=== PATIENT | male | born 1985 | race Caucasian/White ===

== ENCOUNTER 2021-05-28 13:45 | Outpatient (REF) | payer MEDICARE, MEDICAID, SELFPAY ==
[2021-05-28 14:09] LABS: MANUAL DIFF FLAG NO
[2021-05-28 14:30] LABS: Basophils Percent Auto 0.6 % (0-2); Eosinophils Absolute Auto 0.2 X10*3/uL (0.0-0.4); Hematocrit 44.9 % (42-52); Hemoglobin 15.8 g/dl (14.0-18.0); Imm Gran Abs Auto 0.03 X10*3/uL (0.00-0.03); Imm Gran Pct Auto 0.5 % (0.0-0.4); Lymphocytes Absolute Auto 2.1 X10*3/uL (1.2-4.9); Lymphocytes Percent Auto 32.8 % (20-40); Mean Corpuscular HGB Conc 35.2 g/dl (31.0-36.0); Mean Corpuscular Hemoglobin 30.5 pg (27.0-33.0); Mean Corpuscular Volume 86.7 fL (80-98); Mean Platelet Volume 9.3 fL (9.4-12.4); Monocytes Absolute Auto 0.6 X10*3/uL (0.1-1.2); Monocytes Percent Auto 9.9 % (2-11); Neutrophils Absolute Auto 3.4 X10*3/uL (2.0-8.3); Neutrophils Percent Auto 53.2 % (45-73); Platelet Count 225 X10*3/uL (160-400); Red Blood Count 5.18 X10*6/uL (4.60-5.80); White Blood Count 6.3 X10*3/uL (4.8-10.8)
[2021-05-28 14:47] LABS: Estimated Average Glucose 103 mg/dL; Hemoglobin A1c % 5.2 %
[2021-05-28 15:03] LABS: Alanine Aminotransferase 60 U/L (0-40); Albumin Level 4.8 g/dL (3.5-5.0); Alkaline Phosphatase 31 U/L (39-117); Anion Gap 11 (12-20); Aspartate Amino Transferase 34 U/L (5-37); Bilirubin Total 0.6 mg/dL (0.0-1.0); Blood Urea Nitrogen 16 mg/dL (9-16); Calcium 9.6 mg/dL (8.4-10.2); Carbon Dioxide 27 mmol/L (22-29); Chloride 106 mmol/L (96-108); Cholesterol 193 mg/dL; Estimated Glomerular Filt Rate 53; Glucose Random 104 mg/dL (60-115); HDL Cholesterol 26 mg/dL; LDL Cholesterol Calculated 120 mg/dl; Potassium 3.8 mmol/L (3.3-5.1); Sodium 140 mmol/L (135-145); Total Protein 7.3 g/dL (6.5-8.0); Triglycerides 236 mg/dL
[2021-05-28 15:24] LABS: Free T4 (Free Thyroxine) 1.23 ng/dL (0.71-1.85); Thyroid Stimulating Hormone 0.19 uIU/mL (0.32-4.0)
[2021-05-28 15:29] LABS: Appearance Urine HAZY; Color Urine YELLOW; Glucose Urine UA NEG (NEG); Leukocyte Esterase Urine 1+ (NEG); Nitrite Urine NEG (NEG); PH 7.5 (5.0-8.0); Specific Gravity - Urine 1.015 (1.005-1.025); Urine Blood NEG (NEG); Urine Ketones NEG (NEG); Urine Protein NEG (NEG-TRACE)
[2021-05-28 15:36] LABS: Folate 7.6 ng/mL (> or = 4.0); Vitamin B12 333 pg/mL (200-900)
[2021-05-28 15:38] LABS: Mucus Urine 1+ /LPF; Renal Epithelial Cells Urine TRACE /LPF; Squamous Epithelial Cell Urine 3+ /LPF
[2021-05-28 15:39] LABS: Bacteria Urine 1+ /LPF; RBC Urine 0 /HPF (0); WBC Urine 0-2 /HPF (0-4)
[2021-05-28 15:50] LABS: Creatinine Urine 39.66 mg/dL; Microalbumin Urine < 5.0 mg/L
== END 2021-05-28 13:46 | disposition home or self-care (01) ==
LOC: HO.LAB 13:45
PROVIDERS: Absent Provider Internal Medicine Hypertension Specialist; PCP Internal Medicine; Visit Provider Internal Medicine
DX: K21.9 Gastro-esophageal reflux disease without esophagitis (principal); R73.02 Impaired glucose tolerance (oral); E03.9 Hypothyroidism, unspecified; E78.00 Pure hypercholesterolemia, unspecified; N18.31 Chronic kidney disease, stage 3a
CPT/HCPCS: 36415; 80053; 80061; 81001; 81003; 82043; 82607; 82746; 83036; 84439; 84443; 85025

== ENCOUNTER 2021-09-18 11:07 | Outpatient (REF) | payer MEDICARE, MEDICAID, SELFPAY ==
[2021-09-18 13:11] LABS: Alanine Aminotransferase 66 U/L (0-40); Albumin Level 4.7 g/dL (3.5-5.0); Alkaline Phosphatase 31 U/L (39-117); Anion Gap 11 (12-20); Aspartate Amino Transferase 36 U/L (5-37); Bilirubin Total 0.5 mg/dL (0.0-1.0); Blood Urea Nitrogen 16 mg/dL (9-16); Calcium 10.1 mg/dL (8.4-10.2); Carbon Dioxide 27 mmol/L (22-29); Chloride 105 mmol/L (96-108); Cholesterol 186 mg/dL; Estimated Glomerular Filt Rate 48; Glucose Random 101 mg/dL (60-115); HDL Cholesterol 13 mg/dL; LDL Cholesterol Calculated 115 mg/dl; Sodium 139 mmol/L (135-145); Total Protein 7.3 g/dL (6.5-8.0); Triglycerides 294 mg/dL
[2021-09-18 13:33] LABS: Thyroid Stimulating Hormone 13.64 uIU/mL (0.32-4.0)
== END 2021-09-18 11:08 | disposition home or self-care (01) ==
LOC: HO.LAB 11:07
PROVIDERS: PCP Internal Medicine; Visit Provider Internal Medicine
DX: E78.00 Pure hypercholesterolemia, unspecified (principal); E03.9 Hypothyroidism, unspecified
CPT/HCPCS: 36415; 80053; 80061; 84439; 84443

== ENCOUNTER 2021-12-16 10:20 | Outpatient (REF) | payer MEDICARE, MEDICAID, SELFPAY ==
[2021-12-16 12:46] LABS: Free T4 (Free Thyroxine) 1.02 ng/dL (0.71-1.85); Thyroid Stimulating Hormone 3.96 uIU/mL (0.32-4.0)
== END 2021-12-16 10:21 | disposition home or self-care (01) ==
LOC: HO.LAB 10:20
PROVIDERS: PCP Internal Medicine; Visit Provider Internal Medicine
DX: E03.9 Hypothyroidism, unspecified (principal)
CPT/HCPCS: 36415; 84439; 84443

== ENCOUNTER 2022-03-12 15:51 | Outpatient (REF) | payer MEDICARE, MEDICAID, SELFPAY ==
[2022-03-12 17:32] LABS: Anion Gap 12 (12-20); Blood Urea Nitrogen 16 mg/dL (9-16); Calcium 9.4 mg/dL (8.4-10.2); Carbon Dioxide 26 mmol/L (22-29); Chloride 98 mmol/L (96-108); Estimated Glomerular Filt Rate 54; Glucose Random 122 mg/dL (60-115); Potassium 3.6 mmol/L (3.3-5.1); Sodium 132 mmol/L (135-145)
[2022-03-12 18:50] LABS: Total Protein Urine Random < 7 mg/dL (<12)
== END 2022-03-12 15:52 | disposition home or self-care (01) ==
LOC: HO.LAB 15:51
PROVIDERS: PCP Internal Medicine; Visit Provider Internal Medicine Hypertension Specialist
DX: N18.31 Chronic kidney disease, stage 3a (principal)
CPT/HCPCS: 36415; 80048; 84156

== ENCOUNTER 2022-06-26 08:13 | Outpatient (REF) | payer MEDICARE, MEDICAID, SELFPAY ==
[2022-06-26 08:27] LABS: MANUAL DIFF FLAG NO
[2022-06-26 09:00] LABS: Basophils Percent Auto 0.6 % (0-2); Eosinophils Absolute Auto 0.2 X10*3/uL (0.0-0.4); Eosinophils Percent Auto 2.4 % (0-4); Hematocrit 42.3 % (42.0-52.0); Hemoglobin 14.4 g/dl (14.0-18.0); Imm Gran Abs Auto 0.03 X10*3/uL (0.00-0.03); Imm Gran Pct Auto 0.5 % (0.0-0.4); Lymphocytes Absolute Auto 2.4 X10*3/uL (1.2-4.9); Mean Corpuscular Volume 88.1 fL (80.0-98.0); Mean Platelet Volume 9.7 fL (9.4-12.4); Monocytes Absolute Auto 0.6 X10*3/uL (0.1-1.2); Monocytes Percent Auto 8.8 % (2-11); Neutrophils Absolute Auto 3.4 x10*3/uL (2.0-8.3); Neutrophils Percent Auto 51.7 % (45-73); Platelet Count 247 X10*3/uL (160-400); Red Cell Distribution Width 11.9 % (11.0-16.0); White Blood Count 6.6 X10*3/uL (4.8-10.8)
[2022-06-26 09:27] LABS: Estimated Average Glucose 105 mg/dL; Hemoglobin A1c % 5.3 %
[2022-06-26 09:46] LABS: Alanine Aminotransferase 48 U/L (0-40); Albumin Level 4.8 g/dL (3.5-5.0); Alkaline Phosphatase 32 U/L (39-117); Anion Gap 15 (12-20); Aspartate Amino Transferase 35 U/L (5-37); Bilirubin Total 0.4 mg/dL (0.0-1.0); Blood Urea Nitrogen 14 mg/dL (9-16); Carbon Dioxide 25 mmol/L (22-29); Chloride 106 mmol/L (96-108); Cholesterol 152 mg/dL; Estimated Glomerular Filt Rate 55; Glucose Random 104 mg/dL (60-115); HDL Cholesterol 30 mg/dL; LDL Cholesterol Calculated 99 mg/dl; Potassium 4.1 mmol/L (3.3-5.1); Sodium 142 mmol/L (135-145); Total Protein 7.1 g/dL (6.5-8.0); Triglycerides 116 mg/dL
[2022-06-26 09:54] LABS: Free T4 (Free Thyroxine) 1.18 ng/dL (0.71-1.85); Thyroid Stimulating Hormone 0.17 uIU/mL (0.32-4.0); Vitamin D 25-OH Total 18.5 ng/mL (>30)
[2022-06-26 10:08] LABS: Folate 7.3 ng/mL (> or = 4.0); Vitamin B12 325 pg/mL (200-900)
== END 2022-06-26 08:14 | disposition home or self-care (01) ==
LOC: HO.LAB 08:13
PROVIDERS: PCP Internal Medicine; Visit Provider Internal Medicine
DX: N18.31 Chronic kidney disease, stage 3a (principal); R73.02 Impaired glucose tolerance (oral); E78.00 Pure hypercholesterolemia, unspecified; E03.9 Hypothyroidism, unspecified
CPT/HCPCS: 36415; 80053; 80061; 82306; 82607; 82746; 83036; 84439; 84443; 85025

== ENCOUNTER 2022-09-04 09:32 | Outpatient (REF) | payer MEDICARE, MEDICAID, SELFPAY ==
[2022-09-04 11:40] LABS: Free T4 (Free Thyroxine) 0.87 ng/dL (0.71-1.85); Thyroid Stimulating Hormone 2.73 uIU/mL (0.32-4.0)
== END 2022-09-04 09:33 | disposition home or self-care (01) ==
LOC: HO.LAB 09:32
PROVIDERS: PCP Internal Medicine; Visit Provider Internal Medicine
DX: E03.9 Hypothyroidism, unspecified (principal)
CPT/HCPCS: 36415; 84439; 84443

== ENCOUNTER 2023-03-31 13:01 | Outpatient (AMB) | payer MEDICARE, MEDICAID, SELFPAY ==
--- NOTE | 2023-03-31 13:06 | AM.OFFWIN_ITS ---
Intake Vital Signs 03/31/23 13:09 Height 5 ft 10 in Weight 83.178 kg BMI 26.3 BP 122/70 Blood Pressure Location Lt brachial Position Sitting Pulse 98 Pulse Source Pulse Oximeter Temp 97.2 F Temp Source Temporal Artery Scan Pulse Oximetry (%) 100 Oxygen Delivery Method Room Air Intake Visit Reasons: EP Sciatica/RT Leg pain Intake Note: Pt is here c/o right leg pain for a few days. Patient Tobacco Use Status: Former Tobacco user Allergies Penicillins [PENICILLINS] Allergy (Mild, Verified 03/31/23 13:07) RASH cat dander [CATS] Allergy (Unknown, Verified 03/31/23 13:07) STUFFY NOSE, ITCHY EYES penicillin V Allergy (Unknown, Verified 03/31/23 13:07) rash risperidone [Risperdal] Allergy (Unknown, Verified 03/31/23 13:07) Unknown aripiprazole [From ABILIFY] Adverse Reaction (Severe, Verified 03/31/23 13:07) many eps symptons Do you need a note to return to daycare/school/sports/work: No HPI HPI Comments History of Present Illness Details 1310 37 yo Male history hypertension, GERD, hypothyroidism, schizoaffective disorder presenting with complaints of right lower back pain with radiation into right buttocks and right lower extremity, patient tells me that he has a history of sciatica normally on the left side however today it is on the right side. Denie s blunt trauma. Denies urinary/bowel incontinence/retention, saddle paresthesias, weakness, fevers, chills, nausea, vomiting, headache, vision changes, dizziness and weakness Physical exam with right lumbar paraspinous tenderness on palpation. No midline tenderness. No saddle paresthesias. Patient ambulating with steady gait normal coordination Suspected that this is sciatica versus lumbar radiculopathy. Unlikely cauda equina, cord compression, epidural abscess. No signs of neurovascular comp Plan tylenol, prednisone and Lidoderm. Educated patient on diagnosis and treatment plan, answered all question, patient verbalizes understanding. At this time patient will be discharged home, advised to return with new or worsening symptoms. Educated on worrisome signs and symptoms and when to return. At this time I feel comfortable discharge home. [facility] Medical History Alcohol abuse Erectile dysfunction Fatty liver GERD (gastroesophageal reflux disease) Hypercholesterolemia Hypothyroid Impaired glucose tolerance Overweight (BMI 25.0-29.9) Schizoaffective disorder, bipolar type Surgical History History of endoscopy Family History Father Medical history unknown Mother No problems noted. Sister Thyroid condition Paternal Grandfather Myocardial infarction Brother No problems noted. Social History Housing: House Alcohol intake: current Patient Tobacco Use Status: Former Tobacco user Tobacco use type: Cigarette e-Cigarette/Vaping Use: Never Used Second Hand Smoke Exposure: No service: No Current occupational status: unemployed Cognitive needs: No Hearing needs: No Vision needs: No Review of Systems Const Details: Constitutional : No Weight loss, No Fever, No Chills, ENT/Mouth : No Hearing loss, No Ear Pain, No Nasal Congestion, No Sinus Pain, No Hoarseness, No sore throat, No Rhinorrhea, No Swallowing Difficulty Cardiovascular : No Chest Pain, No SOB Respiratory : No Cough, No Dyspnea Gastrointestinal : No Nausea, No Vomiting, No Diarrhea, No abdominal Pain, No Hematochezia, No Melena Genitourinary : No Dysuria, No Urinary Frequency, No Hematuria, No Urinary Incontinence, Musculoskeletal : positive back pain Skin : No Skin Lesions, No rash Neuro : No Weakness, No Numbness, No Paresthesias, no loss of bowel or bladder incontinence, no saddle anesthesia All systems reviewed & are unremarkable except as noted in HPI and below Physical Exam Vital Signs: Last Vital Signs Temp 97.2 F 03/31/23 13:09 Pulse 98 03/31/23 13:09 BP 122/70 03/31/23 13:09 Pulse Ox 100 03/31/23 13:09 Oxygen Delivery Method Room Air 03/31/23 13:09 BMI result Body Mass Index 26.3 Vital signs stable Appearance: Alert.? Oriented X3.? No acute distress.? Head: Normocephalic, atraumatic, no step-offs or deformities Eyes: Pupils equal, round and reactive to light.? CVS: Normal heart rate and rhythm.? Pulses normal.? Respiratory: No respiratory distress.? Breath sounds normal.? Abdomen: Soft and nontender.? Skin: Skin warm and dry.? Normal skin color.? Normal skin turgor.? Extremities: No lower extremity edema.? No calf ttp. 5/5 strength to bilateral upper and lower extremities Back: No midline tenderness, no C-spine tenderness, full range of motion, no CVA tenderness bilaterally + right lumbar paraspinous tenderness on palpation. No midline tenderness. No saddle paresthesias. Patient ambulating with steady gait normal coordination Neuro: Oriented X 3.? No motor deficit.? No sensory deficit. CN 2-12 intact Assessment & Plan Assessment & Plan (1) Lumbar radiculopathy: Code(s): M54.16 - Radiculopathy, lumbar region Plan Take your medications as prescribed. If you were prescribed antibiotics today, it is important that you take your medication to their entirety, do not skip any doses, do not finish them early. Follow-up with your primary care provider this week. Return to the emergency department with new or worsening symptoms. Such as fevers, chills, chest pain, shortness of breath, nausea, vomiting, dizziness, headache, vision changes, lethargy In case of emergency call 911 Toradol has been sent to your pharmacy, you tolerated this well in the department. Please take this as prescribed do not take this with ibuprofen, or other NSAIDs, do not mix this with alcohol. Side effects of this medication including increased risk for bleeding and possible kidney injury. Medications: New prednisone 40 mg (2 x 20 mg) PO DAILY 10 tabs 0RF 5 days lidocaine 4% (AsperFlex (lidocaine)) 1 patch topical DAILY PRN 15 ea 0RF pain acetaminophen (Tylenol) 650 mg (2 x 325 mg) PO QID PRN 20 caps 0RF pain Coding Level of Care Code Est Pt Level 3 (86084) Diagnoses Lumbar radiculopathy M54.16
[2023-03-31 13:09] VITALS: BP 122/70; PULSE 98; TEMP 36.2; O2SAT 100; BMI 26.3
== END 2023-03-31 13:51 | disposition home or self-care (01) ==
PROVIDERS: PCP Internal Medicine; Visit Provider Physician Assistant
DX: M54.16 Radiculopathy, lumbar region (principal)
CPT/HCPCS: 99213

== ENCOUNTER 2023-04-13 12:43 | Outpatient (AMB) | payer MEDICARE, MEDICAID, SELFPAY ==
[2023-04-13 12:44] VITALS: BP 120/64; PULSE 107; TEMP 36.4; O2SAT 98; BMI 35.0
--- NOTE | 2023-04-13 12:44 | MHC.OFFWIV ---
Intake Vital Signs 04/13/23 12:44 Height 5 ft Weight 179 lb 4 oz BMI 35.0 BP 120/64 Blood Pressure Location Rt brachial Position Sitting Pulse 107 H Pulse Source Pulse Oximeter Temp 97.5 F Temp Source Temporal Artery Scan Pulse Oximetry (%) 98 Oxygen Delivery Method Room Air Intake Visit Reasons: EP RT Leg Intake Note: Pt is here c/o right leg pain for the past 3 weeks. Patient Tobacco Use Status: Former Tobacco user Allergies Penicillins [PENICILLINS] Allergy (Mild, Verified 04/14/23 06:01) RASH cat dander [CATS] Allergy (Unknown, Verified 04/14/23 06:01) STUFFY NOSE, ITCHY EYES penicillin V Allergy (Unknown, Verified 04/14/23 06:01) rash risperidone [Risperdal] Allergy (Unknown, Verified 04/14/23 06:01) Unknown aripiprazole [From ABILIFY] Adverse Reaction (Severe, Verified 04/14/23 06:01) many eps symptons Medication List - Last Reconciled 04/14/23 by Sae Hoffman MD acetaminophen (Tylenol) 650 mg (2 x 325 mg) PO QID PRN benztropine 1 mg PO BID chlorpromazine 200 mg PO .QD cyclobenzaprine 10 mg PO TID PRN 7 days fenofibrate 160 mg PO DAILY haloperidol 10 mg PO TID levothyroxine take once a day 6 days a week orally every morning; 90 days lidocaine 4% (AsperFlex (lidocaine)) 1 patch topical DAILY PRN pantoprazole 40 mg PO DAILY polymyxin B sulf-trimethoprim 10,000 unit- 1 mg/mL 1 drp ophthalmic (eye) QID 7 days prednisone 40 mg (2 x 20 mg) PO DAILY 5 days prednisone 40 mg (2 x 20 mg) PO DAILY 5 days sildenafil 100 mg PO DAILY PRN Do you need a note to return to daycare/school/sports/work: No HPI EP RT Leg HPI Details 37-year-old male presents to the office for a sick visit. Patient is complaining of pain in the right leg starting from the hip all the way down to the foot. Does not recall any fall or injury. Able to walk with no difficulty. Pain is throbbing in nature in the hip area. [facility] Medical History Alcohol abuse Erectile dysfunction Fatty liver GERD (gastroesophageal reflux disease) Hypercholesterolemia Hypothyroid Impaired glucose tolerance Overweight (BMI 25.0-29.9) Schizoaffective disorder, bipolar type Surgical History History of endoscopy Family History Father Medical history unknown Mother No problems noted. Sister Thyroid condition Paternal Grandfather Myocardial infarction Brother No problems noted. Social History Housing: House Alcohol intake: current Patient Tobacco Use Status: Former Tobacco user Tobacco use type: Cigarette e-Cigarette/Vaping Use: Never Used Second Hand Smoke Exposure: No service: No Current occupational status: unemployed Cognitive needs: No Hearing needs: No Vision needs: No Physical Exam Vital Signs: Last Vital Signs Temp 97.5 F 04/13/23 12:44 Pulse 107 H 04/13/23 12:44 BP 120/64 04/13/23 12:44 Pulse Ox 98 04/13/23 12:44 Oxygen Delivery Method Room Air 04/13/23 12:44 BMI result Body Mass Index 35.0 Const General: cooperative and healthy appearing Nutritional Appearance: well nourished Orientation/consciousness: patient oriented x3 Limitations: no limitations HEENT Head: Yes normal to inspection Eyes General: appearance normal, both eyes and all related structures Neck Neck: Yes normal visual inspection Chest Chest palpation & inspection: normal palpation of entire chest wall Resp Effort & Inspection: normal respiratory effort Neuro General: patient oriented x3 Extrem Other: Right hip: Discomfort along the greater trochanter. Assessment & Plan Assessment & Plan (1) Pain of right hip: Code(s): M25.551 - Pain in right hip Plan: X-ray images were personally reviewed by me. No abnormality seen. Anti-inflammatory suggested. If symptoms do not improve to follow-up here. Orders: Orders XR hip RT w PEL1V 04/13/23 M25.551 - Pain in right hip Coding Level of Care Code Est Pt Level 4 (57248) Diagnoses Pain of right hip M25.551
== END 2023-04-13 13:42 | disposition home or self-care (01) ==
PROVIDERS: PCP Internal Medicine; Visit Provider Internal Medicine
DX: M25.551 Pain in right hip (principal)
CPT/HCPCS: 99214

== ENCOUNTER 2023-04-13 13:11 | Outpatient (REF) | payer MEDICARE, MEDICAID, SELFPAY ==
--- NOTE | ~2023-04-13 | XR_ITS ---
EXAMINATION: XR HIP, RIGHT CLINICAL INFORMATION: Pain. COMPARISON: None available. TECHNIQUE: Two views of the right hip. FINDINGS: No fracture. Alignment is anatomic. Hip joint space is maintained. Soft tissues are unremarkable. XR/XR hip RT w PEL1V IMPRESSION: No significant abnormality identified.
== END 2023-04-13 13:12 | disposition home or self-care (01) ==
LOC: HO.HMGCX 13:11
PROVIDERS: Visit Provider Internal Medicine
DX: M25.551 Pain in right hip (principal)
CPT/HCPCS: 73502

== ENCOUNTER 2023-05-20 10:44 | Outpatient (AMB) | payer MEDICARE, MEDICAID, SELFPAY ==
--- NOTE | 2023-05-20 10:55 | A.OFFPC_ITS ---
Vital Signs 05/20/23 10:56 Height 5 ft 10 in Weight 177 lb 6 oz BMI 25.4 BP 118/86 Blood Pressure Location Lt brachial Position Sitting Respiration 17 Pulse 115 H Pulse Source Pulse Oximeter Pulse Oximetry (%) 98 Oxygen Delivery Method Room Air Intake Visit Reasons: pt wants pt Intake Note: Pt is here for pain of right hip. Pt requesting PT order for [place] office. Digital Assistant Required: No Accompanied by: Self / Same As Patient Allergies Penicillins [PENICILLINS] Allergy (Mild, Verified 05/20/23 11:33) RASH cat dander [CATS] Allergy (Unknown, Verified 05/20/23 11:33) STUFFY NOSE, ITCHY EYES penicillin V Allergy (Unknown, Verified 05/20/23 11:33) rash risperidone [Risperdal] Allergy (Unknown, Verified 05/20/23 11:33) Unknown aripiprazole [From ABILIFY] Adverse Reaction (Severe, Verified 05/20/23 11:33) [facility] Medication List - Last Reconciled 05/20/23 by Jona Morelos PA-C acetaminophen (Tylenol) 650 mg (2 x 325 mg) PO QID PRN benztropine 1 mg PO BID chlorpromazine 200 mg PO .QD fenofibrate 160 mg PO DAILY haloperidol 10 mg PO TID levothyroxine take once a day 6 days a week orally every morning; 90 days lidocaine 4% (AsperFlex (lidocaine)) 1 patch topical DAILY PRN pantoprazole 40 mg PO DAILY sildenafil 100 mg PO DAILY PRN Tobacco use date assessed: 09/17/22 Dental Screening Dental Screen Date: 05/20/23 Did you have a dental visit in the last 12 months?: Yes Did you have a dental problem in the last 6 months where you did not have access to dental care?: No Was dental information given to patient?: Patient has dentist HPI pt wants pt HPI Details Patient is a 37-year-old male here today for a problem visit. This is the 1st time I am meeting this 37-year-old male with a past medical history significant for CKD, schizophrenia, hypothyroid and hyperlipidemia. He reports over the last few weeks having right buttocks pain that radiates down his right leg into his calf. He denies any recent falls or trauma to his lower back or leg. He has had similar symptoms in the past that have resolved spontaneously. He has tried Tylenol for his pain has not been effective. He is interested in doing physical therapy to help him with his presumed sciatica. [facility] Medical History Alcohol abuse Erectile dysfunction Fatty liver GERD (gastroesophageal reflux disease) Hypercholesterolemia Hypothyroid Impaired glucose tolerance Overweight (BMI 25.0-29.9) Schizoaffective disorder, bipolar type Surgical History History of endoscopy Family History Father Medical history unknown Mother No problems noted. Sister Thyroid condition Paternal Grandfather Myocardial infarction Brother No problems noted. Social History Housing: House Alcohol intake: current Patient Tobacco Use Status: Former Tobacco user Tobacco use type: Cigarette e-Cigarette/Vaping Use: Never Used Second Hand Smoke Exposure: No service: No Current occupational status: unemployed Cognitive needs: No Hearing needs: No Vision needs: No Questionnaire Thrive Questionnaire Date Thrive assessed: 09/17/22 ARMANDO-7 AMB Questionnaire ARMANDO-7 Date ARMANDO - 7 assessed: 09/17/22 Source: Developed by Drs. Harley Louis, Ewa Chambers, Lewis Be and colleagues, with an educational karen from [employer]. Review of Systems Const Denies headache(s) Eyes Denies loss of vision ENT Denies vertigo, Denies dizziness, Denies headache(s) and Denies sore throat Card Denies chest pain, Denies leg edema and Denies lightheadedness Resp Denies cough, Denies hemoptysis and Denies wheezing GI Denies abdominal pain, Denies melena, Denies constipation, Denies diarrhea and Denies vomiting Denies dysuria, Denies urinary frequency and Denies urinary urgency Musc Denies arthralgias, Denies joint swelling, Denies numbness and Denies tingling Neuro Denies Abnormal speech present, Denies behavioral changes, Denies vertigo, Denies dizziness, Denies headache(s), Denies loss of vision, Denies memory loss, Denies numbness and Denies tingling Psych Denies anxiety, Denies behavioral changes, Denies depression, Denies memory loss and Denies panic attacks David/Lymph Denies easy bleeding and Denies easy bruising Aller/Immun Denies wheezing Physical exam (Primary Care) Vital Signs: Last Vital Signs Pulse 115 H 05/20/23 10:56 Resp 17 05/20/23 10:56 BP 118/86 05/20/23 10:56 Pulse Ox 98 05/20/23 10:56 Oxygen Delivery Method Room Air 05/20/23 10:56 BMI result Body Mass Index 25.4 Tobacco/Smoking Status: Tobacco use Status Tobacco use date assessed 09/17/22 05/20/23 10:59 Patient Tobacco Use Status Former Tobacco user 05/20/23 10:59 Tobacco use type Cigarette 05/20/23 10:59 e-Cigarette/Vaping Use Never Used 05/20/23 10:59 Thrive Assessment: Date of Thrive Assessment Date Thrive assessed 09/17/22 05/20/23 10:59 Const General: healthy appearing, no acute distress, alert and awake Nutritional Appearance: well nourished Orientation/consciousness: oriented to person, oriented to place and oriented to time HENMT Ears: TM's normal bilaterally General nose exam: Normal nasal mucous membranes and turbinates present Eyes Conjunctivae: conjunctivae normal Sclerae: sclerae normal Pupils: Equal, round and reactive pupils present Neck Neck: Yes no lymphadenopathy and Yes no JVD Thyroid: Thyroid normal Carotids: no bruits Resp Effort & Inspection: normal respiratory effort and not tachypneic Auscultation: no crackles, no rales, no rhonchi and no wheezes Cardio Rate: regular rate Rhythm: regular rhythm Heart sounds: no murmurs and normal S1 and S2 GI Palpation (GI): Soft to palpation, nontender, no hepatomegaly and no splenomegaly Auscultation: normal bowel sounds Skin General skin exam: no rashes or lesions noted and dry skin Neuro General: oriented to person, oriented to place and oriented to time Cranial nerves: Yes Equal, round and reactive pupils present Speech: No Abnormal speech present Gait exam (Neuro): Normal gait present Motor exam (neuro): no tremor noted Extrem Right upper extremity: full ROM Left upper extremity: full ROM Right lower extremity: full ROM; no edema Left lower extremity: full ROM; no edema Psych Mental Status: mental status grossly normal Speech and movement: Normal speech and movement present Affect: normal affect Attitude: cooperative Thought process: Normal thought process present Assessment and Plan Assessment & Plan (1) Right sided sciatica: Code(s): M54.31 - Sciatica, right side Plan: Patient's signs symptoms most consistent with right-sided sciatica. Would likely benefit from formal physical therapy for his right-sided sciatica. Will supply patient with short-term script gabapentin the use at night to help reduce his neuropathic pain. (2) Hypertension: Code(s): I10 - Essential (primary) hypertension Qualifiers: Hypertension type: primary hypertension Qualified Code(s): I10 - Essential (primary) hypertension Plan: Needs more recent labs to evaluate kidney function Orders: Orders Comprehensive [place]. Panel Fast Today N18.32 - Chronic kidney disease, stage 3b PT Evaluation and Treatment Today M54.31 - Sciatica, right side Medications: New gabapentin 300 mg PO BEDTIME 14 days 14 caps 0RF M54.31 - Sciatica, right side Refilled sildenafil administer 30 minutes to 4 hours before activity 100 mg PO DAILY PRN 7 tabs 0RF sexual activity N52.9 - Male erectile dysfunction, unspecified Coding Level of Care Code Est Pt Level 4 (23949) Diagnoses Right sided sciatica M54.31 Primary hypertension I10 Hypertension type: primary hypertension
[2023-05-20 10:56] VITALS: BP 118/86; PULSE 115; RESP 17; O2SAT 98; BMI 25.4
== END 2023-05-20 11:45 | disposition home or self-care (01) ==
PROVIDERS: PCP Internal Medicine; Visit Provider Physician Assistant
DX: M54.31 Sciatica, right side (principal); I10 Essential (primary) hypertension
CPT/HCPCS: 99214

== ENCOUNTER 2023-07-06 13:00 | Outpatient (RCR) | payer MEDICARE, MEDICAID, SELFPAY ==
--- NOTE | 2023-05-28 14:37 | MHC.PT.EP ---
[facility] [place] Office [place] Office [place] Office [address]any Nunn [address] [phone] F: [phone] F: [phone] F: [phone] F: [phone] Physical Therapy Plan of Care Date of Evaluation: 05/28/23 Date of Surgery: Diagnosis: This is a 37 yo male presenting to skilled PT with a script for R sided sciatica. Assessment: This is a 37 yo male presenting to skilled PT with a script for R sided sciatica. Patient reporting ongoing pain over the last few months radiating from low back into the right buttocks and down his right leg into his calf. He denies any recent falls or trauma causing his symptoms. Originally his L leg was bothering him however he was in bed for some time due to this pain (unable to get out due to pain), this resolved but his RLE started to increase in pain. Pain today is located R buttock and runs into the gastroc. He denies foot symptoms or back pain but does have some numbness at the knee. Pain is described as tight and achy. He has tried Tylenol for his pain relief, has been to the walk-in twice where he was provided gabapentin and hip x-ray (negative). Pain increases with sitting, in the AM. Pain improves with movement. Assessment reveals pain that ranges from up to a 5/10 at the worst. Patient demos decreased lumbar and hamstring/gastroc ROM, strength of gluts, core and back, TTP at R PSIS and R piriformis and impaired posture with forward head, increased thoracic kyphosis and rounded shoulders. Patient appears to live a sedentary lifestyle now and this may be contributing to his stiffness but he has ambitions of starting at the gym. Based on functional limitations, impaired QOL and pain tolerance patient is a good candidate for skilled PT 2x/wk for 4wks. Frequency and Duration: The patient will be seen 2x/wk for 4wks Short Term Goals: Pt will demonstrate improved postural awareness and understanding of core engagement with supine and standing tasks without cues throughout session to improve overall back safety in 2 weeks. Pt will demonstrate centralization of sx in 2 weeks. Pt will continue to reinforce precautions, sitting, standing and ADL modifications with proper body mechanics in 2 wks. Fleet Director Goals: Pt will demonstrate improved outcome measure by 5 points in 4 weeks for improved functional mobility. Pt will demonstrate ability to bend and lift WNL min to no pain per surgeon restrictions for return to work activities in 4 wks. Pt will be I in HEP and compliant in 4wks Treatment Plan: Modalities to reduce pain, spasms and effusion. Manual therapy to restore motion and function. Therapeutic exercise to improve strength and flexibility. Neuromuscular re-education for posture and balance. Therapeutic activities to return to functional activities of daily living. Electronically signed by: Екатерина Chu, PT Please sign and return to therapist. Thank you for your referral.
--- NOTE | 2023-07-19 12:59 | MHC.PT.DC ---
[facility] [place] [facility] [place] Office [place] Office [address] [phone] F: [phone] F: [phone] F: [phone] F: [phone] Physical Therapy Discharge Report Diagnosis: This is a 37 yo male presenting to skilled PT with a script for R sided sciatica. Date of Surgery: Date of Evaluation: 05/28/23 Date of Discharge: 07/19/23 Treatments to Date: 9 Cancellations to Date: 0 No Shows to Date: 0 Discharge Status: Independent with HEP Patient Elected to Stop Discharge Summary: Patient with improved ROM, strength and pain. He is looking into a membership at [employer] to continue HEP on on his own. He called to DC and stated that he feels well enough to continue on his own. Electronically signed by: Екатерина Chu PT Please sign and return to therapist. Thank you for your referral.
== END 2023-07-19 12:59 | disposition home or self-care (01) ==
LOC: HO.PTCHIC 13:00
PROVIDERS: PCP Internal Medicine; Visit Provider Physician Assistant
DX: M54.31 Sciatica, right side (principal)
CPT/HCPCS: 97110; 97140; 97161; 97530

== ENCOUNTER 2023-09-21 13:21 | Outpatient (AMB) | payer MEDICARE, MEDICAID, SELFPAY ==
[2023-09-21 13:22] VITALS: BP 136/88; PULSE 93; O2SAT 99; BMI 26.3
--- NOTE | 2023-09-21 13:22 | A.OFFPC_ITS ---
Vital Signs 09/21/23 13:22 Height 5 ft 10 in Weight 183 lb BMI 26.3 BP 136/88 Blood Pressure Location Lt brachial Position Sitting Pulse 93 Pulse Source Pulse Oximeter Pulse Oximetry (%) 99 Oxygen Delivery Method Room Air Intake Visit Reasons: pe Intake Note: Patient is here today for a physical. Value Stream Coach Required: No Allergies Penicillins [PENICILLINS] Allergy (Mild, Verified 09/21/23 13:23) RASH cat dander [CATS] Allergy (Unknown, Verified 09/21/23 13:23) STUFFY NOSE, ITCHY EYES penicillin V Allergy (Unknown, Verified 09/21/23 13:23) rash risperidone [Risperdal] Allergy (Unknown, Verified 09/21/23 13:23) Unknown aripiprazole [From ABILIFY] Adverse Reaction (Severe, Verified 09/21/23 13:23) [facility] Medication List - Last Reconciled 09/21/23 by Carlota Pulido MD acetaminophen (Tylenol) 650 mg (2 x 325 mg) PO QID PRN benztropine 1 mg PO BID chlorpromazine 200 mg PO .QD fenofibrate 160 mg PO DAILY gabapentin 300 mg PO BEDTIME 14 days haloperidol 10 mg PO TID levothyroxine take once a day 6 days a week orally every morning; 90 days lidocaine 4% (AsperFlex (lidocaine)) 1 patch topical DAILY PRN [SciatiEase 2 caps PO BID] sildenafil 100 mg PO DAILY PRN Tobacco use date assessed: 09/21/23 Dental Screening Dental Screen Date: 09/21/23 Did you have a dental visit in the last 12 months?: No Did you have a dental problem in the last 6 months where you did not have access to dental care?: No Was dental information given to patient?: Patient has dentist HPI pe HPI Details 38-year-old overweight male with chronic kidney disease fatty liver impaired glucose tolerance GERD hypercholesterolemia hypothyroidism hypertension schizoaffective disorder coming in for physical exam last seen in August 2022. Review of the notes April 2023 seen by the nurse practitioner for requesting physical therapy complains of right leg pain and has ask for physical therapy. Patient did have some x-ray done in March 2023 showing no significant abnormality. [facility] Medical History Alcohol abuse Erectile dysfunction Fatty liver GERD (gastroesophageal reflux disease) Hypercholesterolemia Hypothyroid Impaired glucose tolerance Overweight (BMI 25.0-29.9) Schizoaffective disorder, bipolar type Surgical History History of endoscopy Family History Father Medical history unknown Mother No problems noted. Sister Thyroid condition Paternal Grandfather Myocardial infarction Brother No problems noted. Social History (Updated 09/21/23 @ 14:01 by Carlota Pulido MD) Housing: House Alcohol intake: current Comment: 2-3 days per week - 2-3 at one time Patient Tobacco Use Status: Former Tobacco user Tobacco use type: Cigarette Years Smoked: quit 2011 e-Cigarette/Vaping Use: Never Used Second Hand Smoke Exposure: No service: No Current occupational status: unemployed Cognitive needs: No Hearing needs: No Vision needs: No Questionnaire PHQ-9 Over the last 2 weeks, how often have you been bothered by any of the following problems? 1. Little interest or pleasure in doing things: not at all 2. Feeling down, depressed, or hopeless: not at all 3. Trouble falling or staying asleep, or sleeping too much: not at all 4. Feeling tired or having little energy: not at all 5. Poor appetite or overeating: not at all 6. Feeling bad about yourself - or that you are a failure or have let yourself or your family down: not at all 7. Trouble concentrating on things, such as reading the newspaper or watching television: not at all 8. Moving or speaking so slowly that other people could have noticed. Or the opposite - being so fidgety or restless that you have been moving around a lot more than usual: not at all 9. Thoughts that you would be better off or of hurting yourself in some way: not at all Total score: 0 Depression Screening Interpretation: Negative Depression Screening Done: Yes Source: Developed by Drs. Harley Louis, Ewa Chambers, Lewis Be and colleagues, with an educational karen from [employer]. Thrive Questionnaire Date Thrive assessed: 09/21/23 I am a: Patient What is your living situation today?: I have a steady place to live Within the past 12 months, did the food you bought not last and you didn't have the money to get more?: Never true Within the past 12 months, did you worry whether your food would run out before you got money to buy more?: Never true Do you have trouble paying for medicines?: No Do you have trouble getting transportation to medical appointments?: No Do you have trouble paying your heating and electricity bill?: No Do you have trouble taking care of your child, family member or friend?: No Do you have trouble with day-to-day activities such as bathing, preparing meals, shopping, managing finances, etc.?: No Are you currently unemployed and looking for a job?: No Are you interested in more education?: No Please select the resources that you would like help with: None THRIVE Score: 0 AUDIT C Alcohol Use Questionnaire (AUDIT-C) 1. How often do you have a drink containing alcohol?: 2-3 times a week 2. How many drinks containing alcohol do you have on a typical day when you are drinking?: 5 or 6 3. How often do you have six or more drinks on one occasion?: Less than monthly Total Score: 6 ARMANDO-7 AMB Questionnaire ARMANDO-7 Date ARMANDO - 7 assessed: 09/21/23 Feeling nervous, anxious, or on edge: 0 = Not at all Not being able to stop or control worryin = Not at all Worrying too much about different things: 0 = Not at all Trouble relaxin = Not at all Being so restless that it is hard to sit still: 0 = Not at all Becoming easily annoyed or irritable: 0 = Not at all Feeling afraid as if something awful might happen: 0 = Not at all Total ARMANDO-7 score (0-4 normal; 5-9 mild; 10-14 moderate; 15-21 severe): 0 Source: Developed by Drs. Harley Louis, Ewa Chambers, Lewis Be and colleagues, with an educational karen from [employer]. Review of Systems Const Denies poor appetite and Denies weakness Eyes Denies no additional complaints ENT Reports Normal hearing present, Denies dizziness, Denies nasal congestion, Denies tinnitus and Denies sore throat Card Denies chest pain, Denies syncope, Denies rapid heart rate and Denies dyspnea Resp Denies cough and Denies dyspnea GI Denies change in stool character, Reports constipation, Denies diarrhea, Denies nausea and Denies vomiting Denies dysuria and Denies urinary frequency Neuro Reports Normal hearing present, Denies confusion, Denies dizziness, Denies syncope and Denies weakness Psych Denies confusion Physical exam (Primary Care) Vital Signs: Last Vital Signs Pulse 93 09/21/23 13:22 BP 136/88 09/21/23 13:22 Pulse Ox 99 09/21/23 13:22 Oxygen Delivery Method Room Air 09/21/23 13:22 BMI result Body Mass Index 26.3 Tobacco/Smoking Status: Tobacco use Status Tobacco use date assessed 09/21/23 09/21/23 13:24 Patient Tobacco Use Status Former Tobacco user 09/21/23 13:24 Tobacco use type Cigarette 09/21/23 13:24 e-Cigarette/Vaping Use Never Used 09/21/23 13:24 PHQ-9: PHQ-9 Score PHQ-9: Total score 0 09/21/23 13:41 Depression Screening Interpretation: Negative Thrive Assessment: Date of Thrive Assessment Date Thrive assessed 09/21/23 09/21/23 13:24 Const General: No confusion Orientation/consciousness: No confusion HENMT Head: Yes normocephalic Ears: external ears normal and TM's normal bilaterally Face and sinus: Yes normal facial exam Mouth: moist mucous membranes Throat: Yes tonsils normal Eyes Conjunctivae: conjunctivae normal Pupils: Equal, round and reactive pupils present and Pupil accommodation reflex normal Direct Ophthalmoscopy: normal light reflex Neck Neck: No lymphadenopathy Thyroid: Thyroid normal Chest Chest palpation & inspection: normal inspection of the chest Resp Effort & Inspection: normal respiratory effort and no audible wheezes Auscultation: clear to auscultation bilaterally, no crackles, no wheezes and lung sounds not diminished Cardio Rate: regular rate Rhythm: regular rhythm Peripheral pulses: radial pulses present and dorsalis pedis present GI Palpation (GI): no masses Auscultation: normal bowel sounds and normoactive bowel sounds Rectal Exam - Male: Yes deferred Other: R inguinal hernia noted , tender on the R gluteal area Skin General skin exam: no rashes or lesions noted Rashes: no rashes Neuro General: No confusion Cranial nerves: Yes Equal, round and reactive pupils present and Yes Normal hearing present Cognition (Neuro): normal cognition Gait exam (Neuro): Normal gait present Motor exam (neuro): 5/5 motor strength present throughout Deep tendon reflexes (DTR's): Right brachioradialis reflex intensity grade: 2+, Left brachioradialis reflex intensity grade: 2+, Right patellar reflex intensity grade: 2+ and Left patellar reflex intensity grade: 2+ Extrem General: No edema Assessment and Plan Assessment & Plan (1) Annual physical exam: Code(s): Z00.00 - Encounter for general adult medical examination without abnormal findings (2) Chronic kidney disease, stage 3b: Code(s): N18.32 - Chronic kidney disease, stage 3b Plan: Keep well hydrated avoid NSAIDs (3) Fatty liver: Code(s): K76.0 - Fatty (change of) liver, not elsewhere classified Plan: Low-fat diet and exercise (4) Impaired glucose tolerance: Code(s): R73.02 - Impaired glucose tolerance (oral) Plan: Decrease the amount of carbohydrate intake, pasta, bread, rice and potatoes are all sugar and that is aside from all the sweet stuff, remember that fruits are good but they are Sweet also. (5) Overweight (BMI 25.0-29.9): Code(s): E66.3 - Overweight Plan: Diet and exercise (6) GERD (gastroesophageal reflux disease): Code(s): K21.9 - Gastro-esophageal reflux disease without esophagitis Qualifiers: Esophagitis presence: without esophagitis Qualified Code(s): K21.9 - Gastro-esophageal reflux disease without esophagitis Plan: Avoid the foods that causes that usually spicy foods, tomato products, juices, coffee, soda and foods that your sensitive to. After eating do not lie down, allow 3-4 hours before in lie down. And keep the head of bed above 30 degrees to avoid the acid from going up. (7) Hypercholesterolemia: Code(s): E78.00 - Pure hypercholesterolemia, unspecified Plan: Avoid fried foods, chicken skin, eggs, butter margarine, pastries and meat. Be it pork or beef they have a lot of cholesterol LDL goal of less than 130 and triglyceride of less than 150 (8) Hypothyroid: Code(s): E03.9 - Hypothyroidism, unspecified Qualifiers: Hypothyroidism type: acquired Qualified Code(s): E03.9 - Hypothyroidism, unspecified Plan: Continue with thyroid medication blood work requested (9) Schizoaffective disorder, bipolar type: Comment: MAYLIN Powers , [facility] counseling Dr. trujillo Code(s): F25.0 - Schizoaffective disorder, bipolar type Plan: Continue to follow-up with counseling and therapy (10) Right sided sciatica: Code(s): M54.31 - Sciatica, right side Plan: sent for PE (11) Inguinal hernia, right: Comment: mild R ight 08/2023 Code(s): K40.90 - Unilateral inguinal hernia, without obstruction or gangrene, not specified as recurrent Plan: avoid heavy lifing Orders: Orders Complete Blood Count Auto Diff Today R73.02 - Impaired glucose tolerance (oral) Hemoglobin A1c Today R73.02 - Impaired glucose tolerance (oral) Thyroid Stimulating Hormone Today R73.02 - Impaired glucose tolerance (oral) Vitamin B12 and Folate Today R73.02 - Impaired glucose tolerance (oral) Comprehensive Met. Panel Today R73.02 - Impaired glucose tolerance (oral) Free T4 (Free Thyroxine) Today R73.02 - Impaired glucose tolerance (oral) Lipid Panel Today E78.00 - Pure hypercholesterolemia, unspecified, R73.02 - Impaired glucose tolerance (oral) Referrals Chiropractic Referral M54.31 - Sciatica, right side Medications: New cyclobenzaprine 10 mg PO BEDTIME PRN 30 tabs 0RF muscle spasm M54.31 - Sciatica, right side Refilled fenofibrate 160 mg PO DAILY 90 tabs 3RF M54.31 - Sciatica, right side Coding Level of Care Code Est Pt Prev Care 18-39y(17573) Diagnoses Annual physical exam Z00.00 Chronic kidney disease, stage 3b N18.32 Fatty liver K76.0 Impaired glucose tolerance R73.02 Overweight (BMI 25.0-29.9) E66.3 Gastroesophageal reflux disease without esophagitis K21.9 Esophagitis presence: without esophagitis Hypercholesterolemia E78.00 Acquired hypothyroidism E03.9 Hypothyroidism type: acquired Schizoaffective disorder, bipolar type F25.0 Right sided sciatica M54.31 Inguinal hernia, right K40.90
== END 2023-09-21 14:39 | disposition home or self-care (01) ==
PROVIDERS: PCP Internal Medicine; Visit Provider Internal Medicine
DX: Z00.00 Encounter for general adult medical examination without abnormal findings (principal); N18.32 Chronic kidney disease, stage 3b; F25.0 Schizoaffective disorder, bipolar type; K76.0 Fatty (change of) liver, not elsewhere classified; R73.02 Impaired glucose tolerance (oral); E66.3 Overweight; K21.9 Gastro-esophageal reflux disease without esophagitis; E78.00 Pure hypercholesterolemia, unspecified; E03.9 Hypothyroidism, unspecified; M54.31 Sciatica, right side; K40.90 Unilateral inguinal hernia, without obstruction or gangrene, not specified as recurrent
CPT/HCPCS: 99395

== ENCOUNTER 2023-10-28 06:50 | Outpatient (REF) | payer MEDICARE, MEDICAID, SELFPAY ==
[2023-10-28 07:07] LABS: MANUAL DIFF FLAG NO
[2023-10-28 07:57] LABS: Basophils Absolute Auto 0.1 X10*3/uL (0.0-0.2); Basophils Percent Auto 0.7 % (0-2); Eosinophils Absolute Auto 0.2 X10*3/uL (0.0-0.4); Eosinophils Percent Auto 2.5 % (0-4); Hematocrit 46.2 % (42.0-52.0); Hemoglobin 16.2 g/dl (14.0-18.0); Imm Gran Abs Auto 0.07 X10*3/uL (0.00-0.03); Imm Gran Pct Auto 0.8 % (0.0-0.4); Lymphocytes Percent Auto 34.1 % (20-40); Mean Corpuscular HGB Conc 35.1 g/dl (31.0-36.0); Mean Corpuscular Hemoglobin 30.2 pg (27.0-33.0); Mean Corpuscular Volume 86.2 fL (80.0-98.0); Mean Platelet Volume 9.6 fL (9.4-12.4); Monocytes Absolute Auto 0.7 X10*3/uL (0.1-1.2); Monocytes Percent Auto 8.4 % (2-11); Neutrophils Absolute Auto 4.7 x10*3/uL (2.0-8.3); Neutrophils Percent Auto 53.5 % (45-73); Platelet Count 282 X10*3/uL (160-400); Red Blood Count 5.36 X10*6/uL (4.60-5.80); White Blood Count 8.8 X10*3/uL (4.8-10.8)
[2023-10-28 08:14] LABS: Estimated Average Glucose 103 mg/dL; Hemoglobin A1c % 5.2 % (<6.0)
[2023-10-28 08:38] LABS: Alanine Aminotransferase 38 U/L (0-40); Albumin Level 4.8 g/dL (3.5-5.0); Alkaline Phosphatase 28 U/L (39-117); Anion Gap 14 (12-20); Aspartate Amino Transferase 48 U/L (5-37); Bilirubin Total 0.4 mg/dL (0.0-1.0); Blood Urea Nitrogen 25 mg/dL (9-16); Calcium 10.2 mg/dL (8.4-10.2); Carbon Dioxide 25 mmol/L (22-29); Chloride 105 mmol/L (96-108); Cholesterol 158 mg/dL (<200); Estimated Glomerular Filt Rate > 60; Glucose Random 123 mg/dL (60-115); HDL Cholesterol 32 mg/dL (>40); LDL Cholesterol Calculated 84 mg/dL (<100); Sodium 140 mmol/L (135-145); Total Protein 7.5 g/dL (6.5-8.0); Triglycerides 211 mg/dL (<150)
[2023-10-28 08:41] LABS: Free T4 (Free Thyroxine) 0.89 ng/dL (0.71-1.85); Thyroid Stimulating Hormone 2.33 uIU/mL (0.32-4.0)
[2023-10-28 08:52] LABS: Folate 6.2 ng/mL (> or = 4.0); Vitamin B12 513 pg/mL (200-900)
== END 2023-10-28 06:51 | disposition home or self-care (01) ==
LOC: HO.LAB 06:50
PROVIDERS: PCP Internal Medicine; Visit Provider Internal Medicine
DX: R73.02 Impaired glucose tolerance (oral) (principal); E78.00 Pure hypercholesterolemia, unspecified
CPT/HCPCS: 36415; 80053; 80061; 82607; 82746; 83036; 84439; 84443; 85025

== ENCOUNTER 2023-12-29 16:07 | Outpatient (AMB) | payer MEDICARE, MEDICAID, SELFPAY ==
[2023-12-29 16:20] VITALS: BP 120/86; PULSE 69; O2SAT 98; BMI 26.3
--- NOTE | 2023-12-29 16:20 | MHC.PC.OV ---
Vital Signs 12/29/23 16:20 Height 5 ft 10 in Weight 183 lb BMI 26.3 BP 120/86 Blood Pressure Location Lt brachial Position Sitting Pulse 69 Pulse Source Pulse Oximeter Pulse Oximetry (%) 98 Oxygen Delivery Method Room Air Intake Visit Reasons: R sciatica Portable Irrigation Operator Required: No Systems Development Manager: Not Required per policy Accompanied by: Self / Same As Patient Allergies Penicillins [PENICILLINS] Allergy (Mild, Verified 12/29/23 16:21) RASH cat dander [CATS] Allergy (Unknown, Verified 12/29/23 16:21) STUFFY NOSE, ITCHY EYES penicillin V Allergy (Unknown, Verified 12/29/23 16:21) rash risperidone [Risperdal] Allergy (Unknown, Verified 12/29/23 16:21) Unknown aripiprazole [From ABILIFY] Adverse Reaction (Severe, Verified 12/29/23 16:21) [facility] Medication List - Last Reconciled 12/29/23 by Carlota Pulido MD acetaminophen (Tylenol) 650 mg (2 x 325 mg) PO QID PRN benztropine 1 mg PO BID chlorpromazine 200 mg PO .QD cyclobenzaprine 10 mg PO BEDTIME PRN fenofibrate 160 mg PO DAILY gabapentin 300 mg PO BEDTIME 14 days haloperidol 10 mg PO TID levothyroxine take once a day 6 days a week orally every morning; 90 days lidocaine 4% (AsperFlex (lidocaine)) 1 patch topical DAILY PRN [SciatiEase 2 caps PO BID] sildenafil 100 mg PO DAILY PRN Tobacco use date assessed: 09/21/23 Dental Screening Dental Screen Date: 09/21/23 HPI R sciatica HPI Details 38-year-old overweight male with a history of chronic kidney disease stage IIIB fatty liver impaired glucose tolerance GERD hypercholesterolemia hypothyroidism schizoaffective disorder having right-sided sciatica last seen in August 2023 for physical exam. Patient was sent for physical therapy. Blood work done in October 2023 reveals creatinine of 1.31 blood sugar of 123 elevated liver function tests at 48 triglyceride of 211. soccer injured R ankle and still having pain [facility] Medical History Alcohol abuse Erectile dysfunction Fatty liver GERD (gastroesophageal reflux disease) Hypercholesterolemia Hypothyroid Impaired glucose tolerance Overweight (BMI 25.0-29.9) Schizoaffective disorder, bipolar type Surgical History History of endoscopy Family History Father Medical history unknown Mother No problems noted. Sister Thyroid condition Paternal Grandfather Myocardial infarction Brother No problems noted. Social History (Updated 09/21/23 @ 14:01 by Carlota Pulido MD) Housing: House Alcohol intake: current Comment: 2-3 days per week - 2-3 at one time Patient Tobacco Use Status: Former Tobacco user Tobacco use type: Cigarette Years Smoked: quit 2011 e-Cigarette/Vaping Use: Never Used Second Hand Smoke Exposure: No service: No Current occupational status: unemployed Cognitive needs: No Hearing needs: No Vision needs: No Questionnaire Thrive Questionnaire Date Thrive assessed: 09/21/23 ARMANDO-7 AMB Questionnaire ARMANDO-7 Date ARMANDO - 7 assessed: 09/21/23 Source: Developed by Drs. Harley Louis, Ewa Chambers, Lewis Be and colleagues, with an educational karen from [employer]. Physical exam (Primary Care) Vital Signs: Last Vital Signs Pulse 69 12/29/23 16:20 BP 120/86 12/29/23 16:20 Pulse Ox 98 12/29/23 16:20 Oxygen Delivery Method Room Air 12/29/23 16:20 BMI result Body Mass Index 26.3 Tobacco/Smoking Status: Tobacco use Status Tobacco use date assessed 09/21/23 12/29/23 16:21 Patient Tobacco Use Status Former Tobacco user 12/29/23 16:21 Tobacco use type Cigarette 12/29/23 16:21 e-Cigarette/Vaping Use Never Used 12/29/23 16:21 Thrive Assessment: Date of Thrive Assessment Date Thrive assessed 09/21/23 12/29/23 16:21 Const General: alert; No acute distress Eyes Conjunctivae: conjunctivae normal Resp Auscultation: clear to auscultation bilaterally Cardio Rate: regular rate Rhythm: regular rhythm GI Inspection: Yes normal to inspection Extrem General: Yes normal to inspection and No edema Assessment and Plan Assessment & Plan (1) Elevated blood sugar: Code(s): R73.9 - Hyperglycemia, unspecified Plan: Decrease the amount of carbohydrate intake, pasta, bread, rice and potatoes are all sugar and that is aside from all the sweet stuff, remember that fruits are good but they are Sweet also. (2) Fatty liver: Code(s): K76.0 - Fatty (change of) liver, not elsewhere classified Plan: Low-fat diet and exercise (3) Chronic kidney disease, stage 3b: Code(s): N18.32 - Chronic kidney disease, stage 3b Plan: Keep well hydrated avoid NSAIDs. (4) Hypercholesterolemia: Code(s): E78.00 - Pure hypercholesterolemia, unspecified Plan: Avoid fried foods, chicken skin, eggs, butter margarine, pastries and meat. Be it pork or beef they have a lot of cholesterol LDL goal of less than 130 and triglyceride of less than 150. (5) Hypothyroid: Code(s): E03.9 - Hypothyroidism, unspecified Qualifiers: Hypothyroidism type: acquired Qualified Code(s): E03.9 - Hypothyroidism, unspecified Plan: Continue with thyroid medication (6) GERD (gastroesophageal reflux disease): Code(s): K21.9 - Gastro-esophageal reflux disease without esophagitis Qualifiers: Esophagitis presence: without esophagitis Qualified Code(s): K21.9 - Gastro-esophageal reflux disease without esophagitis Plan: Avoid the foods that causes that usually spicy foods, tomato products, juices, coffee, soda and foods that your sensitive to. After eating do not lie down, allow 3-4 hours before in lie down. And keep the head of bed above 30 degrees to avoid the acid from going up. (7) Ankle pain, right: Code(s): M25.571 - Pain in right ankle and joints of right foot Orders: Orders US abdomen complete 3 Months K76.0 - Fatty (change of) liver, not elsewhere classified, R79.89 - Other specified abnormal findings of blood chemistry Hemoglobin A1c 3 Months R73.02 - Impaired glucose tolerance (oral) Lipid Panel 3 Months E78.00 - Pure hypercholesterolemia, unspecified, R73.02 - Impaired glucose tolerance (oral) XR ankle RT 2V Today M25.571 - Pain in right ankle and joints of right foot Comprehensive Met. Panel 3 Months R73.02 - Impaired glucose tolerance (oral) Medications: Refilled cyclobenzaprine 10 mg PO BEDTIME PRN 30 tabs 0RF muscle spasm M54.31 - Sciatica, right side Coding Level of Care Code Est Pt Level 4 (02305) Diagnoses Elevated blood sugar R73.9 Fatty liver K76.0 Chronic kidney disease, stage 3b N18.32 Hypercholesterolemia E78.00 Acquired hypothyroidism E03.9 Hypothyroidism type: acquired Gastroesophageal reflux disease without esophagitis K21.9 Esophagitis presence: without esophagitis Ankle pain, right M25.571
== END 2023-12-29 17:21 | disposition home or self-care (01) ==
PROVIDERS: PCP Internal Medicine; Visit Provider Internal Medicine
DX: R73.9 Hyperglycemia, unspecified (principal); K76.0 Fatty (change of) liver, not elsewhere classified; N18.32 Chronic kidney disease, stage 3b; E78.00 Pure hypercholesterolemia, unspecified; E03.9 Hypothyroidism, unspecified; K21.9 Gastro-esophageal reflux disease without esophagitis; M25.571 Pain in right ankle and joints of right foot
CPT/HCPCS: 99214

== ENCOUNTER 2024-03-20 07:46 | Outpatient (REF) | payer MEDICARE, MEDICAID, SELFPAY ==
--- NOTE | ~2024-03-20 | US_ITS ---
EXAMINATION: US ABDOMEN COMPLETE CLINICAL INFORMATION: Other specified abnormal findings of blood chemistry. COMPARISON: Renal ultrasound 09/22/2013. TECHNIQUE: Real-time imaging of the abdominal viscera. FINDINGS: PANCREAS: Limited visualization of pancreatic tail and head. Imaged portion of pancreatic body is unremarkable. ABDOMINAL AORTA: Limited visualization. Imaged portions of abdominal aorta are within normal limits in caliber. INFERIOR VENA CAVA: Visualized portions are normal. LIVER: Increased hepatic parenchymal heterogeneity and echogenicity could be associated with hepatocellular disease/hepatic steatosis and substantially limits visualization. Hypoechoic areas in the right hepatic lobe adjacent to the gallbladder are characteristic of focal sparing within a fatty liver. Correlation with liver function tests and clinical exam recommended to determine further management. GALLBLADDER: No gallstones. No gallbladder wall thickening. COMMON BILE DUCT: Normal in caliber measuring 0.3 cm in diameter. RIGHT KIDNEY: No hydronephrosis. No renal calculi. Limited visualization. The kidney measures 10.2 cm in maximum dimension. LEFT KIDNEY: No hydronephrosis. No renal calculi. Limited visualization. The kidney measures 11.0 cm in maximum dimension. SPLEEN: 0.8 cm echogenic lesion within the spleen of indeterminate etiology, possibly a hemangioma. Mild splenomegaly. The spleen measures 12.8 cm in maximum dimension. FREE FLUID: None. US/US abdomen complete IMPRESSION: 1. Increased hepatic parenchymal heterogeneity and echogenicity could be associated with hepatocellular disease/hepatic steatosis and substantially limits visualization. Hypoechoic areas in the right hepatic lobe adjacent to the gallbladder are characteristic of focal sparing within a fatty liver. Correlation with liver function tests and clinical exam recommended to determine further management. 2. A 0.8 cm echogenic lesion within the spleen of indeterminate etiology, possibly a hemangioma. Mild splenomegaly.
== END 2024-03-20 07:47 | disposition home or self-care (01) ==
LOC: HO.US 07:46
PROVIDERS: PCP Internal Medicine; Visit Provider Internal Medicine
DX: R79.89 Other specified abnormal findings of blood chemistry (principal); K76.0 Fatty (change of) liver, not elsewhere classified
CPT/HCPCS: 76700

== ENCOUNTER 2024-09-22 13:31 | Outpatient (AMB) | payer MEDICARE, MEDICAID, SELFPAY ==
--- OUTSIDE RECORDS SUMMARY | 2024-09-22 13:40 | XMS_ITS | Encounter Summary ---
Author Organization [facility] [employer] [facility] Address [address] [place] [address] Care Team Providers Care Cup Machine Operator Name Role Phone Unavailable Primary Care Provider Unavailabl e Encounter Details Date Type Department Care Team (Latest Contact Info) Description 01/04/2019 Abstract C CONVERSIONS Dental, Provider, DDS Social History Tobacco Use Types Packs/Day Years Used Date Smoking Tobacco: Never Assessed Sex and Gender Information Value Date Recorded Sex Assigned at Male 06/22/2022 10:17 AM EDT Legal Sex Male 10:17 AM EDT Gender Identity Not on file Sexual Orientation Not on file documented as of this encounter Plan of Treatment Not on file documented as of this encounter Visit Diagnoses Not on filedocumented in this encounter
--- OUTSIDE RECORDS SUMMARY | 2024-09-22 13:40 | XMS_ITS | Clinical Summary ---
Author Organization [employer] Address [address] [place] [address] Care Team Providers Care Stopboard Assembler Name Role Phone Unavailable Primary Care Provider Unavailabl e Social History Tobacco Use Types Packs/Day Years Used Date Smoking Tobacco: Never Assessed Sex and Gender Information Value Date Recorded Sex Assigned at Male 06/22/2022 10:17 AM EDT Legal Sex Male 10:17 AM EDT Gender Identity Not on file Sexual Orientation Not on file Plan of Treatment Health Maintenance Due Date Last Done Comments Depression Screening 1984 Lipid Panel 1984 Alcohol/Substance Use Screening 1996 Tobacco Screening 1996 Family Planning (PISQ) 1999 DTaP/Tdap/Td Vaccines (1 - Tdap) 2003 Hepatitis B Vaccines (1 of 3 - 19+ 3-dose series) 2003 COVID-19 Vaccine ( - 2023-2 5 season) 2024 Influenza Vaccine (#1) 2024 Zoster Vaccines (1 of 2) 2034 RSV Patients and Pa tients Aged 60 years or older (1 - 1-dose 75+ series) 2059 HIB Vaccines Aged Out No longer eligi ble based on patient's age to complete this topic HPV Vaccines Aged Out No longer eligi ble based on patient's age to complete this topic Hepatitis A Vaccines Aged Out No long er eligible based on patient's age to complete this topic IPV Vaccines Aged Out No longer eligi ble based on patient's age to complete this topic Meningococcal Vaccine Aged Out No bud alyson eligible based on patient's age to complete this topic Pneumococcal Vaccine: Pediat rics (0 to 5 Years) and At-Risk Patients (6 to 49) Years) Aged Out No longer eligible b ased on patient's age to complete this topic RSV under 20 months Aged Out No longe r eligible based on patient's age to complete this topic Rotavirus Vaccines Aged Out No longer eligible based on patient's age to complete this topic
--- OUTSIDE RECORDS SUMMARY | 2024-09-22 13:41 | XMS_ITS | Clinical Summary ---
Author Organization [facility] Address [address] [address] [place] [address] Phone Care Team Providers Care Wire Setter Name Role Phone Carlota Pulido MD Primary Care Provider [phone] Allergies Active Allergy Reactions Criticality Noted Date Comments Amlodipine Other (see comments) 07/04/2012 Aripiprazole 01/28/2021 Penicillin V Other (see comments) 01/28/2021 Risperidone 01/28/2021 Medications benztropine (COGENTIN) 2 MG tablet Take 1 tablet by mouth 2 (two) times a day Active fenofibrate (TRIGLIDE) 160 MG tablet Take 1 tablet by mouth 1 (one) time each day Active chlorproMAZINE (THORAZINE) 200 MG tablet Take by mouth 1 (one) time each day Active haloperidol (HALDOL) 10 MG tablet Take 1 tablet by mouth 3 (three) times a day Active levothyroxine (SYNTHROID, LEVOTHROID) 150 MCG tablet Take 1 tablet by mouth 1 (one) time each day Active pantoprazole (PROTONIX) 40 MG EC tablet Take 1 tablet by mouth 1 (one) time each day Active levothyroxine (SYNTHROID, LEVOTHROID) 175 MCG tablet Take 175 mcg by mouth 05/20/2021 Active sildenafil (VIAGRA) 100 MG tablet Take by mouth if needed 02/26/2022 Active Active Problems Problem Noted Date Diagnosed Date Chronic kidney disease stage 2 01/28/2021 Essential hypertension 01/28/2021 Family History Medical History Relation Comments Heart disease Father Hypertension Sibling Relation Status Comments Father Unknown Mother Alive Sibling Social History Tobacco Use Types Packs/Day Years Used Date Smoking Tobacco: Former Cigarettes 1 12.1 S tarted: 08/23/2012 Smokeless Tobacco: Never Tobacco Cessation:Counseling Given: Not Answered Comments:Smoking History Info:Every day Alcohol Use Standard Drinks/Week Comments Yes 0 (1 standard drink = 0.6 oz pure alcohol) Alcoholic Drinks/day: Occasional social drink Sex and Gender Information Value Date Recorded Sex Assigned at Not on file Legal Sex Male 5:03 PM EST Gender Identity Not on file Sexual Orientation Not on file Last Filed Vital Signs Vital Sign Reading Time Taken Comments Blood Pressure 134/80 03/12/2022 3:32 PM EDT Pulse 110 03/12/2022 3:32 PM EDT Temperature - - Respiratory Rate - - Oxygen Saturation 98% 03/12/2022 3:32 PM EDT Inhaled Oxygen Concentration - - Weight 90.2 kg (198 lb 12.8 oz) 03/12/2022 3:32 PM EDT Height - - Body Mass Index - - Plan of Treatment Health Maintenance Due Date Last Done Comments Pneumococcal Vaccine: Pediat rics (0 to 5 Years) and At-Risk Patients (6 to 64 Years) (1 of 2 - PCV) 1990 Hepatitis B Vaccine (1 of 3 - 19+ 3-dose series) 06/24 Influenza Vaccine (#1) 2024 Insurance [place]ID [place] Care Teams Wire Setter Relationship Specialty Start Date End Date Carlota Pulido MD [facility] [address] [place], [place] PCP - General Internal Medicine 10/23/20
--- NOTE | 2024-09-22 13:49 | MHC.PC.OV ---
Vital Signs 09/22/24 13:51 Height 5 ft 10 in Weight 188 lb 6 oz BMI 27.0 BP 110/60 Blood Pressure Location Lt brachial Position Sitting Pulse 103 H Pulse Source Pulse Oximeter Temp 97.3 F Temp Source Skin Pulse Oximetry (%) 97 Oxygen Delivery Method Room Air Intake Visit Reasons: pe Intake Note: Patient is here today for a physical. Requesting for prostate level lab order. Pt decline flu shot today. Orthopedic Radiologic Technologist Required: No Commercial Designer: Not Required per policy Accompanied by: Self / Same As Patient Allergies Penicillins [PENICILLINS] Allergy (Mild, Verified 09/22/24 13:50) RASH cat dander [CATS] Allergy (Unknown, Verified 09/22/24 13:50) STUFFY NOSE, ITCHY EYES penicillin V Allergy (Unknown, Verified 09/22/24 13:50) rash risperidone [Risperdal] Allergy (Unknown, Verified 09/22/24 13:50) Unknown aripiprazole [From ABILIFY] Adverse Reaction (Severe, Verified 09/22/24 13:50) many [facility] Medication List - Last Reconciled 09/22/24 by Carlota Pulido MD acetaminophen (Tylenol) 650 mg (2 x 325 mg) PO QID PRN benztropine 1 mg PO BID chlorpromazine 200 mg PO .QD fenofibrate 160 mg PO DAILY haloperidol 10 mg PO TID levothyroxine take once a day 6 days a week orally every morning; 90 days sildenafil 100 mg PO DAILY PRN Tobacco use date assessed: 09/22/24 Dental Screening Dental Screen Date: 09/22/24 Did you have a dental visit in the last 12 months?: Yes Did you have a dental problem in the last 6 months where you did not have access to dental care?: No Was dental information given to patient?: Patient has dentist HPI pe HPI Details nausea, The patient is a 39-year-old male presenting with concerns related to fatty liver disease and hypertension. The fatty liver condition was identified during prior bloodwork and ultrasound assessments, revealing elevated liver enzymes. The patient denies significant alcohol consumption, attributing dietary factors, certain medications, and recent lifestyle habits as potential contributors. He has been advised to decrease the intake of animal proteins and increase plant-based proteins, but compliance has been challenging. The hypertension has been well-controlled with current treatment, and recent blood pressure measurements have been satisfactory. There has also been a history of elevated kidney function noted in previous evaluations. The patient reports a history of adverse reactions to Penicillin, Abilify, and Risperidone. He manages these by avoiding the medications due to previous severe allergic reactions and side effects. The patient also reports a history of hernia development, which has been stable without significant symptoms but requires monitoring due to potential complications. Heartburn or gastroesophageal reflux disease is an ongoing issue, causing discomfort and occasional vomiting, although it was previously evaluated via endoscopy. The patient reports taking [id number] remedies with some relief. - Discussion on adopting a plant-based diet to manage fatty liver disease. - Advised reducing animal protein intake and increasing vegetable consumption. - Advised skinless chicken and non-fried fish consumption. - Emphasized avoiding fried foods due to fat absorption. - Discussed the importance of monitoring liver function and undergoing regular blood tests. - Discussed improving lifestyle habits such as regular exercise and weight management. - Recommendations for substitution from smoking cannabis to potentially using edibles to reduce cardio risks. - - Reports smoking cannabis, preferring joints over edibles currently, but aware of cardiovascular risks. - Alcohol use is minimal, with occasional consumption up to four times a month. - Has a family history of heart disease; a paternal grandfather experienced a myocardial infarction. - Former aspiring retail parts professional, history of concussion. - Currently not engaged in a physically demanding job or lifting activities due to hernia concerns. - Gastrointestinal: Reports vomiting in the morning following exposure to cold air. - Cardiovascular: Denies chest pain. - Neurological: Denies loss of consciousness or dizziness. - Respiratory: Denies shortness of breath. - Genitourinary: Denies frequent urination or nocturia. - Labs: Previous bloodwork indicates elevated liver enzymes and kidney function. - Ultrasound: Confirmed fatty liver. [facility] Medical History Alcohol abuse Erectile dysfunction Fatty liver GERD (gastroesophageal reflux disease) Hypercholesterolemia Hypothyroid Impaired glucose tolerance Overweight (BMI 25.0-29.9) Schizoaffective disorder, bipolar type Surgical History History of endoscopy Family History (Updated 09/22/24 @ 13:55 by JUAN Watkins) Father Medical history unknown Mother No problems noted. Sister Thyroid condition Paternal Grandfather Myocardial infarction Brother No problems noted. Other Mental health disorder Social History (Updated 09/22/24 @ 14:15 by Carlota Pulido MD) Housing: House Alcohol intake: current Comment: 2-3 days per week - 2-3 at one time, 08/2024 2 drinks 4 x amonth Patient Tobacco Use Status: Former Tobacco user Tobacco use type: Cigarette Years Smoked: quit 2011 smoke we e-Cigarette/Vaping Use: Never Used Second Hand Smoke Exposure: Yes Substance Use Type: Marijuana service: No Current occupational status: unemployed Cognitive needs: No Hearing needs: No Vision needs: No Questionnaire PHQ-9 Over the last 2 weeks, how often have you been bothered by any of the following problems? 1. Little interest or pleasure in doing things: several days 2. Feeling down, depressed, or hopeless: not at all 3. Trouble falling or staying asleep, or sleeping too much: not at all 4. Feeling tired or having little energy: not at all 5. Poor appetite or overeating: not at all 6. Feeling bad about yourself - or that you are a failure or have let yourself or your family down: not at all 7. Trouble concentrating on things, such as reading the newspaper or watching television: not at all 8. Moving or speaking so slowly that other people could have noticed. Or the opposite - being so fidgety or restless that you have been moving around a lot more than usual: not at all 9. Thoughts that you would be better off or of hurting yourself in some way: not at all Total score: 1 Depression Screening Interpretation: Positive Depression Screening Done: Yes Source: Developed by Drs. Harley Louis, Ewa Chambers, Lewis Be and colleagues, with an educational karen from [employer]. Thrive Questionnaire Date Thrive assessed: 09/22/24 I am a: Patient What is your living situation today?: I have a steady place to live Within the past 12 months, did the food you bought not last and you didn't have the money to get more?: Sometimes True Within the past 12 months, did you worry whether your food would run out before you got money to buy more?: Sometimes True Do you have trouble paying for medicines?: No Do you have trouble getting transportation to medical appointments?: No Do you have trouble paying your heating and electricity bill?: I choose not to answer this question Do you have trouble taking care of your child, family member or friend?: I choose not to answer this question Do you have trouble with day-to-day activities such as bathing, preparing meals, shopping, managing finances, etc.?: No Are you currently unemployed and looking for a job?: Yes Are you interested in more education?: No Please select the resources that you would like help with: None Currently or been in a relationship where the following occur: I choose not to answer THRIVE Score: 2 AUDIT C Alcohol Use Questionnaire (AUDIT-C) 1. How often do you have a drink containing alcohol?: 2-4 times a month 2. How many drinks containing alcohol do you have on a typical day when you are drinking?: 1 or 2 3. How often do you have six or more drinks on one occasion?: Monthly Total Score: 4 ARMANDO-7 AMB Questionnaire ARMANDO-7 Date ARMANDO - 7 assessed: 09/22/24 Feeling nervous, anxious, or on edge: 0 = Not at all Not being able to stop or control worryin = Not at all Worrying too much about different things: 0 = Not at all Trouble relaxin = Not at all Being so restless that it is hard to sit still: 0 = Not at all Becoming easily annoyed or irritable: 1 = Several days Feeling afraid as if something awful might happen: 0 = Not at all Total ARMANDO-7 score (0-4 normal; 5-9 mild; 10-14 moderate; 15-21 severe): 1 Source: Developed by Drs. Harley Louis, Ewa Chambers, Lewis Be and colleagues, with an educational karen from [employer]. Review of Systems Const Denies poor appetite and Denies weakness Eyes Denies no additional complaints ENT Reports Normal hearing present, Denies dizziness, Denies nasal congestion, Denies tinnitus and Denies sore throat Card Denies chest pain, Denies syncope, Denies rapid heart rate and Denies dyspnea Resp Denies cough and Denies dyspnea GI Denies change in stool character, Reports constipation, Denies diarrhea, Denies nausea and Denies vomiting Denies dysuria and Denies urinary frequency Neuro Reports Normal hearing present, Denies confusion, Denies dizziness, Denies syncope and Denies weakness Psych Denies confusion Physical exam (Primary Care) Vital Signs: Last Vital Signs Temp 97.3 F 09/22/24 13:51 Pulse 103 H 09/22/24 13:51 BP 110/60 09/22/24 13:51 Pulse Ox 97 09/22/24 13:51 Oxygen Delivery Method Room Air 09/22/24 13:51 BMI result Body Mass Index 27.0 Tobacco/Smoking Status: Tobacco use Status Tobacco use date assessed 09/22/24 09/22/24 13:54 Patient Tobacco Use Status Former Tobacco user 09/22/24 14:15 Tobacco use type Cigarette 09/22/24 14:15 e-Cigarette/Vaping Use Never Used 09/22/24 14:15 PHQ-9: PHQ-9 Score PHQ-9: Total score 1 09/22/24 14:07 Depression Screening Interpretation: Positive Thrive Assessment: Date of Thrive Assessment Date Thrive assessed 09/22/24 09/22/24 13:54 Currently or been in a relationship where the following occur: I choose not to answer Const General: No confusion Orientation/consciousness: No confusion HENMT Head: Yes normocephalic Ears: external ears normal and TM's normal bilaterally Face and sinus: Yes normal facial exam Mouth: moist mucous membranes Throat: Yes tonsils normal Eyes Conjunctivae: conjunctivae normal Pupils: Equal, round and reactive pupils present and Pupil accommodation reflex normal Direct Ophthalmoscopy: normal light reflex Neck Neck: No lymphadenopathy Thyroid: Thyroid normal Chest Chest palpation & inspection: normal inspection of the chest Resp Effort & Inspection: normal respiratory effort and no audible wheezes Auscultation: clear to auscultation bilaterally, no crackles, no wheezes and lung sounds not diminished Cardio Rate: regular rate Rhythm: regular rhythm Peripheral pulses: radial pulses present and dorsalis pedis present GI Other: R inguinal hernia noted Palpation (GI): no masses Auscultation: normal bowel sounds and normoactive bowel sounds Rectal Exam - Male: Yes deferred Skin General skin exam: no rashes or lesions noted Rashes: no rashes Neuro General: No confusion Cranial nerves: Yes Equal, round and reactive pupils present and Yes Normal hearing present Cognition (Neuro): normal cognition Gait exam (Neuro): Normal gait present Motor exam (neuro): 12/25 motor strength present throughout Deep tendon reflexes (DTR's): Right brachioradialis reflex intensity grade: 2+, Left brachioradialis reflex intensity grade: 2+, Right patellar reflex intensity grade: 2+ and Left patellar reflex intensity grade: 2+ Extrem General: No edema Coding Level of Care Code Est Pt Prev Care 40-64y(87733) Diagnoses Annual physical exam Z00.00 Overweight (BMI 25.0-29.9) E66.3 Elevated blood sugar R73.9 Chronic kidney disease, stage 3b N18.32 Fatty liver K76.0 Hypercholesterolemia E78.00 Acquired hypothyroidism E03.9 Hypothyroidism type: acquired Schizoaffective disorder, bipolar type F25.0 Gastroesophageal reflux disease without esophagitis K21.9 Esophagitis presence: without esophagitis Inguinal hernia, right K40.90 Assessment & Plan Assessment & Plan (1) Annual physical exam: Code(s): Z00.00 - Encounter for general adult medical examination without abnormal findings Category: Medical (2) Overweight (BMI 25.0-29.9): Code(s): E66.3 - Overweight Category: Medical (3) Elevated blood sugar: Code(s): R73.9 - Hyperglycemia, unspecified Category: Medical (4) Chronic kidney disease, stage 3b: Code(s): N18.32 - Chronic kidney disease, stage 3b Category: Medical (5) Fatty liver: Code(s): K76.0 - Fatty (change of) liver, not elsewhere classified Category: Medical (6) Hypercholesterolemia: Code(s): E78.00 - Pure hypercholesterolemia, unspecified Category: Medical (7) Hypothyroid: Code(s): E03.9 - Hypothyroidism, unspecified Category: Medical Qualifiers: Hypothyroidism type: acquired Qualified Code(s): E03.9 - Hypothyroidism, unspecified (8) Schizoaffective disorder, bipolar type: Comment: MAYLIN Powers , [facility] counseling Dr. trujillo Code(s): F25.0 - Schizoaffective disorder, bipolar type Category: Medical (9) GERD (gastroesophageal reflux disease): Code(s): K21.9 - Gastro-esophageal reflux disease without esophagitis Category: Medical Qualifiers: Esophagitis presence: without esophagitis Qualified Code(s): K21.9 - Gastro-esophageal reflux disease without esophagitis (10) Inguinal hernia, right: Comment: mild R ight 08/2023 Code(s): K40.90 - Unilateral inguinal hernia, without obstruction or gangrene, not specified as recurrent Category: Medical Plan - Monitor fatty liver by continuing to check liver enzymes periodically. - Adjust dietary habits towards plant-based proteins to manage fatty liver. - Maintain current hypertension management due to adequacy of control. - Advice on avoiding specific medications causing adverse reactions and maintaining allergy records. - Monitor hernia status; consider surgical consultation if hernia enlarges or becomes symptomatic. - Consider transition from cannabis smoking to edibles to reduce heart and stroke risks. - Schedule an upper GI series to assess persistent GERD-related symptoms for further evaluation. I discussed with the patient the importance of dietary changes and the need for regular follow-up to monitor liver function given his diagnosis of fatty liver. The risks of potential liver issues were outlined, emphasizing the relationship between diet and liver health. I reviewed the adverse medication reactions and reinforced the avoidance of these drugs. Information on the potential cardiovascular effects of cannabis smoking versus edibles was shared, suggesting the latter as a safer alternative. I outlined the benefits of surgical intervention if the hernia worsens and the importance of prompt medical attention if symptoms develop. The patient was informed about the availability of non-surgical diagnostic evaluations for GERD symptoms, and consent was obtained to proceed with an upper GI series. We also discussed the importance of maintaining control of his blood pressure and encouraged continued lifestyle improvements. I noted the necessity of fasting before upcoming laboratory work. Follow-up on heartburn management was addressed with the consideration of past diagnostic efforts and the current symptomatology. - Reduce animal proteins and increase intake of plant-based foods. - Avoid fried foods and seek healthier cooking methods. - Monitor liver function regularly as advised. - Continue existing hypertension medication regime. - Avoid medications with known adverse reactions; inform future providers of all medical allergies. - Avoid lifting heavy weights to prevent hernia complications. - Consider using cannabis edibles instead of smoking joints. - Report any sudden abdominal pain or changes in hernia size promptly. - Attend scheduled follow-up appointments and complete all recommended diagnostic tests. - Fast for 12 hours before your upcoming blood tests. Orders: Orders Complete Blood Count Auto Diff Today E78.00 - Pure hypercholesterolemia, unspecified Lipid Panel Today E78.00 - Pure hypercholesterolemia, unspecified Thyroid Stimulating Hormone Today E78.00 - Pure hypercholesterolemia, unspecified Free T4 (Free Thyroxine) Today E78.00 - Pure hypercholesterolemia, unspecified Hemoglobin A1c Today R73.9 - Hyperglycemia, unspecified Comprehensive Met. Panel Today R73.9 - Hyperglycemia, unspecified Vitamin B12 and Folate Today E78.00 - Pure hypercholesterolemia, unspecified [place] upper GI series Today K21.9 - Gastro-esophageal reflux disease without esophagitis, R13.10 - Dysphagia, unspecified Referrals General Surgery Referral K40.90 - Unilateral inguinal hernia, without obstruction or gangrene, not specified as recurrent
[2024-09-22 13:51] VITALS: BP 110/60; PULSE 103; TEMP 36.3; O2SAT 97; BMI 27.0
== END 2024-09-22 14:26 | disposition home or self-care (01) ==
PROVIDERS: PCP Internal Medicine; Visit Provider Internal Medicine
DX: Z00.00 Encounter for general adult medical examination without abnormal findings (principal); N18.32 Chronic kidney disease, stage 3b; F25.0 Schizoaffective disorder, bipolar type; E66.3 Overweight; R73.9 Hyperglycemia, unspecified; K76.0 Fatty (change of) liver, not elsewhere classified; E78.00 Pure hypercholesterolemia, unspecified; E03.9 Hypothyroidism, unspecified; K21.9 Gastro-esophageal reflux disease without esophagitis; K40.90 Unilateral inguinal hernia, without obstruction or gangrene, not specified as recurrent

== ENCOUNTER → 2024-09-22 13:31 | Outpatient (BNVA) | payer MEDICARE, MEDICAID, SELFPAY | PROVIDERS: PCP Internal Medicine; Visit Provider Internal Medicine | DX: Z00.00 Encounter for general adult medical examination without abnormal findings (principal); E66.3 Overweight; R73.9 Hyperglycemia, unspecified; N18.32 Chronic kidney disease, stage 3b; K76.0 Fatty (change of) liver, not elsewhere classified; E78.00 Pure hypercholesterolemia, unspecified; E03.9 Hypothyroidism, unspecified; F25.0 Schizoaffective disorder, bipolar type; K21.9 Gastro-esophageal reflux disease without esophagitis; K40.90 Unilateral inguinal hernia, without obstruction or gangrene, not specified as recurrent | CPT/HCPCS: 99396 ==

== ENCOUNTER 2024-10-23 13:56 | Outpatient (AMB) | payer MEDICARE, MEDICAID, SELFPAY ==
--- NOTE | 2024-10-23 13:57 | A.OFFVIS_ITS ---
Vital Signs 10/23/24 14:05 Height 5 ft 10 in Weight 181 lb BMI 26.0 Intake Visit Reasons: Unilateral inguinal hernia Intake Note: This patient was referred by for unilateral inguinal hernia. Pt c/o; right groin, bulge, occasional discomfort, reports no changes to bowel habits. Imagin03/20/24- Abd US Director Of Front Office Required: No Accompanied by: Self / Same As Patient Allergies Penicillins [PENICILLINS] Allergy (Mild, Verified 10/23/24 14:06) RASH cat dander [CATS] Allergy (Unknown, Verified 10/23/24 14:06) STUFFY NOSE, ITCHY EYES penicillin V Allergy (Unknown, Verified 10/23/24 14:06) rash risperidone [Risperdal] Allergy (Unknown, Verified 10/23/24 14:06) Unknown aripiprazole [From ABILIFY] Adverse Reaction (Severe, Verified 10/23/24 14:06) many [facility] Medication List - Last Reconciled 10/23/24 by Juan David Chan MD acetaminophen (Tylenol) 650 mg (2 x 325 mg) PO QID PRN benztropine 1 mg PO BID chlorpromazine 200 mg PO .QD fenofibrate 160 mg PO DAILY haloperidol 10 mg PO TID levothyroxine take once a day 6 days a week orally every morning; 90 days sildenafil 100 mg PO DAILY PRN HPI HPI Unilateral inguinal hernia: Details: 39-year-old male referred for a right inguinal hernia. He says he has noticed this reducible mass on his right groin for about 2 months. He has a little bit of discomfort but denies pain. He says that he would mentioned this to his primary care physician who referred him to me. He denies new GI complaints at this time. He does have a history of schizoaffective disorder He says he used to drink heavily but now drinks occasionally. He has a known diagnosis of the liver disease as well. [facility] Medical History (Updated 10/23/24 @ 14:19 by Juan David Chan MD) Reducible right inguinal hernia Alcohol abuse Fatty liver Impaired glucose tolerance Overweight (BMI 25.0-29.9) Erectile dysfunction GERD (gastroesophageal reflux disease) Hypercholesterolemia Hypothyroid Schizoaffective disorder, bipolar type Surgical History History of endoscopy Family History Father Medical history unknown Mother No problems noted. Sister Thyroid condition Paternal Grandfather Myocardial infarction Brother No problems noted. Other Mental health disorder Social History Housing: House Alcohol intake: current Comment: 2-3 days per week - 2-3 at one time, 08/2024 2 drinks 4 x amonth Patient Tobacco Use Status: Former Tobacco user Tobacco use type: Cigarette Years Smoked: quit 2011 smoke weed e-Cigarette/Vaping Use: Never Used Second Hand Smoke Exposure: Yes Substance Use Type: Marijuana service: No Current occupational status: unemployed Cognitive needs: No Hearing needs: No Vision needs: No Review of Systems Const Denies chills and Denies fever(s) Card Denies chest pain, Denies dyspnea and Denies dyspnea on exertion Resp Denies cough, Denies dyspnea and Denies dyspnea on exertion GI Denies hematochezia and Denies change in bowel habits Denies hematuria and Denies difficulty urinating Musc Denies back pain and Denies limited range of motion Neuro Denies focal weakness and Denies convulsions Psych Denies depression and Denies mood swings Physical Exam Vital Signs: BMI result Body Mass Index 26.0 Const General: comfortable and no acute distress Orientation/consciousness: patient oriented x3 Neck Neck: Yes no lymphadenopathy Resp Auscultation: clear to auscultation bilaterally Cardio Rhythm: regular rhythm GI Other: Reducible right inguinal hernia, nontender Palpation (GI): Soft to palpation, nontender and no guarding Neuro General: patient oriented x3 Assessment & Plan Assessment & Plan (1) Reducible right inguinal hernia: Code(s): K40.90 - Unilateral inguinal hernia, without obstruction or gangrene, not specified as recurrent Category: Medical Plan: I offered him the option of proceeding with repair of his right inguinal hernia. I explained to him the risk of worsening, acute incarceration with non repair. He appears to be healthy at this time for surgical intervention. I explained the technique of the procedure with mesh. I explained the risks including but not limited to bleeding, infections, recurrence, injury to other organs including bowel and the testicle, postop pain, as well as the benefits and alternatives. I also reviewed with him what to expect postoperativey. He has given consent. Coding Level of Care Code New Pt Level 3 (65204) Diagnoses Reducible right inguinal hernia K40.90
[2024-10-23 14:05] VITALS: BMI 26.0
--- OUTSIDE RECORDS SUMMARY | 2024-10-23 16:33 | XMS_ITS | Clinical Summary ---
Author Organization [employer] Address [address] [place] [address] Care Team Providers Care Inspector Material Disposition Name Role Phone Unavailable Primary Care Provider [...]
--- OUTSIDE RECORDS SUMMARY | 2024-10-23 16:33 | XMS_ITS | Encounter Summary ---
Author Organization [facility] [employer] [facility] Address [address] [place] [address] Care Team Providers Care Fire Boss Name Role Phone Unavailable Primary Care Provider [...]
--- OUTSIDE RECORDS SUMMARY | 2024-10-23 16:33 | XMS_ITS | Clinical Summary ---
Author Organization [facility] Address [address] [facility] [address] [place] [address] Phone Care Team Providers Care Human Resources Training Manager Name Role Phone Carlota Pulido MD Primary Care Provider [phone] Allergies Active Allergy Reactions Criticality Noted Date [...] Used Date Smoking Tobacco: Former Cigarettes 1 12.2 S tarted: 08/23/2012 Smokeless Tobacco: Never Tobacco [...] (#1) 2024 Insurance [place]ICAID [place] MED[place]ARE [place]ICAID [place] MEDICARE Care Teams Human Resources Training Manager Relationship Specialty Start Date End Date Carlota Pulido MD [facility] [address] [place], [place] PCP - General Internal Medicine 10/23/20
== END 2024-10-23 14:16 | disposition home or self-care (01) ==
PROVIDERS: PCP Internal Medicine; Referring Provider Internal Medicine; Visit Provider Surgery
DX: K40.90 Unilateral inguinal hernia, without obstruction or gangrene, not specified as recurrent (principal)
CPT/HCPCS: 99203

== ENCOUNTER → 2024-10-23 13:56 | Outpatient (BNVA) | payer MEDICARE, MEDICAID, SELFPAY | PROVIDERS: PCP Internal Medicine; Referring Provider Internal Medicine; Visit Provider Surgery | DX: K40.90 Unilateral inguinal hernia, without obstruction or gangrene, not specified as recurrent (principal) | CPT/HCPCS: 99202 ==